=== PATIENT | male | born 1965 | race Caucasian/White ===

== ENCOUNTER 2017-02-26 12:13 | Emergency (ER) | payer BC ==
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
[2017-02-26 14:00] VITALS: BP 203/136
[2017-02-26] MEDS ORDERED: CLONIDINE TRDERM SCH ×2 (14:00)
== END 2017-02-26 14:02 | disposition home or self-care (01) ==
LOC: JP.ED 12:13
DX: I10 Essential (primary) hypertension (principal); M43.16 Spondylolisthesis, lumbar region; F17.210 Nicotine dependence, cigarettes, uncomplicated; Z98.890 Other specified postprocedural states; Z79.899 Other long term (current) drug therapy
CPT/HCPCS: 99282; A9270